=== PATIENT | female | born 1940 | race Two or more races ===

== ENCOUNTER 2019-04-17 07:11 | Inpatient (IN) | payer OTHER ==
[~2019-04-17] VITALS: Ht 160 cm; Wt 49.0 kg
[2019-04-17] MEDS ORDERED: ONDANSETRON HCL 4 MG/2 ML VIAL IV ONE ×2 (08:00→16:15)
[2019-04-17 08:47] LABS: Basophils # (auto) 0 uL; Basophils % (auto) 0.5 % (0.0-2.0); Eosinophils # (auto) 0.2 uL; Eosinophils % (auto) 2.9 % (0.0-7.0); Hematocrit 40.2 % (36.0-46.0); Hemoglobin 13.2 g/dL (12.2-16.2); Lymphocytes # (auto) 1.4 uL; Lymphocytes % (auto) 16.8 % (10.0-50.0); Mean Corpuscular Hgb Conc. 32.9 g/dL (32.0-36.0); Mean Corpuscular Volume 94.2 fL (80.0-100.0); Monocytes # (auto) 0.5 uL; Monocytes % (auto) 6.2 % (0.0-12.0); Neutrophils # (auto) 6.2 uL; Neutrophils % (auto) 73.6 % (37.0-80.0); Platelet Count (auto) 206 10^3/uL (140-450); Red Blood Cells 4.26 10^6/uL (4.0-5.20); Red Cell Distribution Width 14.6 % (11.8-14.3); White Blood Cell 8.5 10^3/uL (4.4-10.8)
[2019-04-17 08:56] LABS: Albumin 3.4 g/dL (3.4-5.0); BUN/Creatinine Ratio 16.9; Calcium 8.6 mg/dL (8.5-10.1); Potassium 4.4 mmol/L (3.5-5.1)
[2019-04-17 08:59] LABS: Bilirubin, Total 0.5 mg/dL (0.2-1.0); Total Protein 7.7 g/dL (6.4-8.2)
[2019-04-17 08:59] LABS: Urine WBC None Seen /hpf (0 - 5)
[2019-04-17 09:07] LABS: INR 1.01 (0.9-1.15); Partial Thromboplastin Time 25.1 sec (23.64-32.05)
[2019-04-17 09:16] LABS: Urine Bacteria FEW /hpf (None Seen); Urine Blood Negative /uL (Negative); Urine Specific Gravity 1.011 (1.001-1.035)
[2019-04-17] MEDS ORDERED: TEMAZEPAM 15 MG CAP PO PRN (13:30)
[2019-04-17] MEDS ORDERED: NITROGLYCERIN 0.4 MG SL TAB SL PRN (13:30)
[2019-04-17] MEDS ORDERED: traMADol HCL 50 MG TAB PO PRN (13:30)
[2019-04-17] MEDS ORDERED: hydrALAZINE HCL 20 MG/ML VL IV PRN (13:30)
[2019-04-17] MEDS ORDERED: MORPHINE SULF INJ 2 MG/ML SYRINGE 1ML IV PRN (13:30)
[2019-04-17] MEDS: hydrALAZINE HCL 20 MG/ML VL IV PRN ×3 (14:03→21:58)
[2019-04-17] MEDS: SODIUM CHLOR 0.9% PF (SALINE LOCK) 10ML VIAL/SYR IV SCH ×2 (14:08→21:06)
[2019-04-17] MEDS: ONDANSETRON HCL 4 MG/2 ML VIAL IV PRN ×2 (14:22→19:53)
[2019-04-17] MEDS ORDERED: amLODIPine BESYLATE 5 MG TAB PO ONE (14:45)
[2019-04-17] MEDS ORDERED: LISINOPRIL 20 MG TAB PO ONE (14:45)
[2019-04-17 16:41] LABS: Amylase 24 U/L (25-115); Lipase 57 U/L (73-393)
--- NOTE | 2019-04-17 17:00 | NUR ---
Telemetry admit from ER GIANCARLO CRENSHAW admitted to Telemetry unit after SBAR received. Patient oriented to JONA GOLDEN RN primary RN, unit, room, bed, and unit policies regarding patient care and visiting hours. Patient now on continuous telemetry monitoring. Patient placed on bedside oxygen 2L NC. No s/s of distress or SOB noted at this time. The patient denies having any pain at this time. Patient stated that she is nauseas and pt verbalizes that nausea medications were given in the ER and are not due at this time. Bed in lowest and locked position with side rails up x2 and call light within reach. Encouraged to call if they need something. All questions and concerns addressed, patient verbalized understanding.
[2019-04-17] MEDS: FUROSEMIDE 40 MG/4 ML VIAL IV SCH (18:46)
--- NOTE | 2019-04-17 18:51 | NUR ---
MRSA Nares Sent to Lab
[2019-04-17] MEDS ORDERED: SPIR25TA8 PO (18:57)
[2019-04-17] MEDS ORDERED: LISI40TA PO (18:57)
[2019-04-17] MEDS ORDERED: AMIO200T33 PO (18:57)
[2019-04-17] MEDS ORDERED: CARV12.544 PO (18:57)
[2019-04-17] MEDS ORDERED: ATOR40TA52 PO (18:57)
[2019-04-17] MEDS ORDERED: AML5T PO (18:57)
[2019-04-17] MEDS ORDERED: APIX5TAB PO (18:57)
--- NOTE | 2019-04-17 19:25 | NUR ---
Opening Shift Note Assumed care of patient, awake and alert x 4. No S/S of distress/SOB. Patient is reporting nausea and is retching into an emesis bag. Will provide PRN antiemetic per MD order. Bed is in lowest position and locked. Call light within reach. Board updated. Tele box number matches monitor and leads are in correct placement. Instructed on POC and to call for assist PRN, will continue to monitor for changes Q1hr and PRN.
[2019-04-17] MEDS: APIXABAN 5 MG TAB PO SCH (21:06)
[2019-04-17] MEDS: ATORVASTATIN 20 MG TAB PO SCH (21:07)
--- NOTE | 2019-04-17 22:01 | NUR ---
Yaneth hospitalist because patient's blood pressure remains elevated and she is having constant nausea and vomiting. Patient's blood pressure at 2099 was 192/73 with HR of 67. Patient was given Hydralazine 30 mg IV for sbp>170 at 2111. Reassessed BP at 2155: 168/87 with HR of 70. All other vitals are WNL. Patient has been vomiting since she was in ER this morning. She has been given zofran 4 mg IV but the patient is still retching and vomiting saliva, mucus, and some bile.
[2019-04-17 22:09] VITALS: BP 192/73
--- NOTE | 2019-04-17 22:41 | NUR ---
Spoke to PRIYANKA Mann. Order: Phenergan 12.5 mg IV IV Once. Give Phenergan then reassess BP 30 minutes after administration.
[2019-04-17] MEDS ORDERED: PROMETHAZINE HCL 25 MG/ML 1ML IV ONE (22:45)
[2019-04-18] MEDS: hydrALAZINE HCL 20 MG/ML VL IV PRN (00:22)
[2019-04-18 02:00] VITALS: BP 149/50
[2019-04-18] MEDS: FUROSEMIDE 40 MG/4 ML VIAL IV SCH ×2 (05:21→17:40)
[2019-04-18] MEDS: SODIUM CHLOR 0.9% PF (SALINE LOCK) 10ML VIAL/SYR IV SCH ×3 (05:21→22:00)
[2019-04-18 06:19] VITALS: BP 146/59
[2019-04-18 06:51] LABS: Basophils # (auto) 0 uL; Basophils % (auto) 0.1 % (0.0-2.0); Eosinophils # (auto) 0 uL; Hematocrit 40.4 % (36.0-46.0); Hemoglobin 13.6 g/dL (12.2-16.2); Lymphocytes # (auto) 0.7 uL; Lymphocytes % (auto) 6.6 % (10.0-50.0); Mean Corpuscular Hemoglobin 31.2 pg (28.0-32.0); Mean Corpuscular Hgb Conc. 33.7 g/dL (32.0-36.0); Mean Corpuscular Volume 92.5 fL (80.0-100.0); Monocytes # (auto) 0.4 uL; Monocytes % (auto) 3.6 % (0.0-12.0); Neutrophils # (auto) 9.7 uL; Neutrophils % (auto) 89.7 % (37.0-80.0); Platelet Count (auto) 265 10^3/uL (140-450); Red Blood Cells 4.37 10^6/uL (4.0-5.20); Red Cell Distribution Width 14.7 % (11.8-14.3); White Blood Cell 10.8 10^3/uL (4.4-10.8)
[2019-04-18 07:05] LABS: Potassium 3.4 mmol/L (3.5-5.1)
[2019-04-18 07:10] LABS: Albumin 3.9 g/dL (3.4-5.0); BUN/Creatinine Ratio 21.3; Calcium 9.1 mg/dL (8.5-10.1)
[2019-04-18 07:14] LABS: Bilirubin, Total 0.6 mg/dL (0.2-1.0); Total Protein 8.4 g/dL (6.4-8.2)
--- NOTE | 2019-04-18 07:15 | NUR ---
Open Shift Note Received report on patient , awake and sitting up in bed. Patient shows no signs of distress at this time. Discussed POC with transition nurse [place], patient and patient's daughter Susan. Bed in lowest lowest locked position, side rails up x2 and call light within reach. Will continue to monitor.
[2019-04-18 09:00] VITALS: BP 127/70
[2019-04-18] MEDS: APIXABAN 5 MG TAB PO SCH (10:00)
[2019-04-18] MEDS ORDERED: NITROGLYCERIN 0.2MG/HR TOPICAL PATCH TD SCH (10:00)
[2019-04-18] MEDS ORDERED: ENOXAPARIN SOD 40 MG/0.4 ML SYRINGE SC SCH (10:00)
[2019-04-18] MEDS ORDERED: POTASSIUM CHL 20 Meq TABLET PO SCH (10:00)
[2019-04-18] MEDS ORDERED: ASPirin 81 mg TAB PO SCH (10:00)
[2019-04-18] MEDS ORDERED: ENALAPRIL MALEATE 10 MG TAB PO SCH (10:00)
[2019-04-18] MEDS: SPIRONOLACTONE 25 MG TAB PO SCH (10:53)
[2019-04-18] MEDS: LISINOPRIL 20 MG TAB PO SCH (10:54)
[2019-04-18] MEDS: amLODIPine BESYLATE 5 MG TAB PO SCH (10:55)
[2019-04-18] MEDS: PANTOPRAZOLE 40 MG TAB PO SCH (10:55)
[2019-04-18 13:00] VITALS: BP 133/58
--- NOTE | 2019-04-18 15:29 | NUR ---
Paged Dr Hazel-Radiologist To Speak With Her Received call from Radiology imaging [employer] who stated they need to speak to the hospitalist in regards to imaging results. Paged Dr Hazel and got permission to give her phone number. Hospitalist's phone number given to [employer]. Radiology Imaging [phone] Hazel made aware of carotid doppler results. No new orders at this time.
--- NOTE | 2019-04-18 15:41 | NUR ---
Dr Hazel Made Dr Barriga Aware Dr Hazel called and stated she paged Dr Barriga to make him aware of Carotid doppler results as well.
[2019-04-18 17:00] VITALS: BP 148/55
--- NOTE | 2019-04-18 19:13 | NUR ---
End of Shift Endorsed care to NOC nurse. Patient shows no signs of distress at this time.
--- NOTE | 2019-04-18 19:35 | NUR ---
Opening Shift Note Assumed care of patient, awake and alert. No S/S of distress/SOB or pain. Instructed on POC and to be NPO after MN, for Stress test tomorrow. Instructed to call for assist PRN, patient verbalized understanding, call light within reach, will continue to monitor for changes Q1hr and PRN.
[2019-04-18] MEDS: ACETAMINOPHEN 500 MG TAB PO PRN (19:49)
[2019-04-18 22:00] VITALS: BP 153/69
[2019-04-18] MEDS: ATORVASTATIN 20 MG TAB PO SCH (22:00)
[2019-04-19 05:00] VITALS: BP 134/69
[2019-04-19] MEDS: FUROSEMIDE 40 MG/4 ML VIAL IV SCH (05:58)
[2019-04-19] MEDS: ONDANSETRON HCL 4 MG/2 ML VIAL IV PRN ×2 (05:58→08:34)
[2019-04-19] MEDS: SODIUM CHLOR 0.9% PF (SALINE LOCK) 10ML VIAL/SYR IV SCH ×3 (05:58→21:33)
--- NOTE | 2019-04-19 06:17 | NUR ---
IV insertion IV access obtained, via clean sterile technique by inserting 20 gauge catheter at RW after [] attempt(s). IV secured properly. No trauma to site. Patient tolerated well. NOTE: []
--- NOTE | 2019-04-19 07:00 | NUR ---
Opening Note Received report on the patient. Awake lying in bed. Patient shows no signs of distress at this time. Discussed plan of care with the patient. bed is in lowest position, side rails up x2, and call light is within reach. Will continue to monitor.
[2019-04-19 07:18] LABS: Potassium 3.3 mmol/L (3.5-5.1)
[2019-04-19 07:22] LABS: BUN/Creatinine Ratio 33.3; Calcium 8.7 mg/dL (8.5-10.1)
[2019-04-19] MEDS ORDERED: ADENOSINE 41 MG in GIVE UN-DILUTED 0 ML IV STA (08:17)
[2019-04-19 08:52] VITALS: BP 149/74
[2019-04-19 09:00] VITALS: BP 153/85
--- NOTE | 2019-04-19 09:14 | NUR ---
Stress Test Patient went down for stress test. Patient was nauseous, PRN medication was given, and tech was made aware of status.
[2019-04-19] MEDS ORDERED: POTASSIUM CHL 20 Meq TABLET PO ONE (09:30)
[2019-04-19] MEDS ORDERED: PROMETHAZINE HCL 25 MG/ML 1ML IV ONE (09:45)
[2019-04-19] MEDS: PANTOPRAZOLE 40 MG TAB PO SCH (10:28)
[2019-04-19] MEDS: SPIRONOLACTONE 25 MG TAB PO SCH (10:29)
[2019-04-19] MEDS: LISINOPRIL 20 MG TAB PO SCH (10:29)
[2019-04-19] MEDS: amLODIPine BESYLATE 5 MG TAB PO SCH (11:06)
[2019-04-19 13:00] VITALS: BP 148/83
[2019-04-19] MEDS: ACETAMINOPHEN 500 MG TAB PO PRN (13:58)
--- NOTE | 2019-04-19 14:11 | NUR ---
Doctor at Bedside doctor at bedside to discuss plan of care with patient
[2019-04-19 16:39] VITALS: BP 124/61
--- NOTE | 2019-04-19 19:15 | NUR ---
End of Shift Patient sitting up in bed, shows no signs of distress at this time. Daughter present at bedside. Bed in lowest locked position, side rails up x2 and call light within reach.
--- NOTE | 2019-04-19 19:30 | NUR ---
OPENING NOTE REPORT RECEIVED FROM DAY SHIFT RN PATIENT IS A/OX4, ABLE TO ANSWER ALL QUESTIONS APPROPRIATELY. POC DISCUSSED, PATIENT AGREEABLE TO PENDING PROCEDURES TOMORROW. PATIENT EDUCATED TO REMAIN NPO AFTER MIDNIGHT FOR PROCEDURES. FALL PRECAUTIONS IN PLACE, CALL LIGHT WITHIN REACH.
[2019-04-19] MEDS: ATORVASTATIN 20 MG TAB PO SCH (21:33)
[2019-04-19 22:00] VITALS: BP 126/53
--- NOTE | 2019-04-20 04:30 | NUR ---
EKG DONE AND PLACED IN CHART ORDERED BY MD FOR PRE OP
[2019-04-20 05:04] VITALS: BP 146/71
[2019-04-20] MEDS: SODIUM CHLOR 0.9% PF (SALINE LOCK) 10ML VIAL/SYR IV SCH ×3 (05:34→21:13)
--- NOTE | 2019-04-20 06:57 | NUR ---
CLOSING PATIENT IS RESTING AT THIS TIME. NO S/S OF DISTRESS NOTED CONSENTS FOR PROCEDURES PLACED IN HARD CHART. PATIENT HAS TWO PATENT IV'S IN PLACE. CALL LIGHT WITHIN REACH. WILL ENDORSE CARE TO AM SHIFT RN
[2019-04-20 07:37] LABS: Basophils # (auto) 0 uL; Basophils % (auto) 0.3 % (0.0-2.0); Eosinophils # (auto) 0 uL; Eosinophils % (auto) 0.2 % (0.0-7.0); Hemoglobin 14.5 g/dL (12.2-16.2); Lymphocytes # (auto) 1.9 uL; Lymphocytes % (auto) 16.4 % (10.0-50.0); Mean Corpuscular Hemoglobin 31.2 pg (28.0-32.0); Mean Corpuscular Hgb Conc. 33.7 g/dL (32.0-36.0); Mean Corpuscular Volume 92.6 fL (80.0-100.0); Monocytes # (auto) 1.2 uL; Monocytes % (auto) 10.3 % (0.0-12.0); Neutrophils # (auto) 8.6 uL; Neutrophils % (auto) 72.8 % (37.0-80.0); Nucleated Red Blood Cells % 0.1 %; Platelet Count (auto) 256 10^3/uL (140-450); Red Blood Cells 4.64 10^6/uL (4.0-5.20); Red Cell Distribution Width 14.2 % (11.8-14.3); White Blood Cell 11.8 10^3/uL (4.4-10.8)
[2019-04-20 07:54] LABS: INR 0.98 (0.9-1.15); Partial Thromboplastin Time 26.8 sec (23.64-32.05)
[2019-04-20 07:56] LABS: BUN/Creatinine Ratio 33.3; Calcium 9.3 mg/dL (8.5-10.1); Potassium 3.9 mmol/L (3.5-5.1)
[2019-04-20 08:00] VITALS: BP 148/103
[2019-04-20] MEDS: ACETAMINOPHEN 500 MG TAB PO PRN (08:46)
--- NOTE | 2019-04-20 08:50 | NUR ---
PATIENT OFF UNIT PATIENT TAKEN TO SCOOP FILLER. ALERT AND ORIENTED X4. DENIES SOB OR CHEST PAIN AT THIS TIME. PATIENT VERBALIZED HAVING A HEADACHE, TYLENOL GIVEN, SCOOP FILLER RN VERIFIED IT WAS OKAY TO GIVE. IV TO LEFT AND RIGHT WRIST 20G PATENT INTACT AND ASYMPTOMATIC.
[2019-04-20 09:09] VITALS: BP_SYST 130; BP_SYST 148; BP_DIAS 103; BP_DIAS 76
[2019-04-20] MEDS: amLODIPine BESYLATE 5 MG TAB PO SCH (10:00)
[2019-04-20] MEDS: LISINOPRIL 20 MG TAB PO SCH (10:00)
--- NOTE | 2019-04-20 11:14 | NUR ---
Nutrition Assessment Notes please see attached link for complete assessment Est. Needs BW 49k-1470kcal (25-30 kcal/kgBW), 49-58 gms pro (1.0-1.2 gms/kgBW). Will continue to monitor pertinent labs and reassess nutrient need prn Addendum: 04/20/19 at [address] Amended: Links added.
[2019-04-20] MEDS ORDERED: GLYCOPYRROLATE 0.2 MG/ML 1ML VIAL ONE (12:38)
[2019-04-20] MEDS ORDERED: ANGIOMAX 250 MG VIAL IV ONE (12:38)
[2019-04-20] MEDS ORDERED: MIDAZOLAM HCL 1MG/1ML-2 ML VIAL ONE (12:39)
[2019-04-20] MEDS ORDERED: SODIUM CHL 0.9% 50 ML ONE (12:39)
[2019-04-20] MEDS ORDERED: fentaNYL CITRATE 100 MCG/2 ML VL ONE (12:39)
[2019-04-20] MEDS ORDERED: LIDOCAINE 2%HCL (LOCAL ANESTH.) INJ 20ML MDV ONE (12:53)
[2019-04-20] MEDS ORDERED: PHENYLEPHRINE HCL 10 MG/ML VL ONE (13:03)
[2019-04-20] MEDS ORDERED: IOHEXOL 350 MG/ML 100ML IJ ONE ×2 (13:09→13:46)
[2019-04-20] MEDS ORDERED: CLOPIDOGREL 300 MG TAB ONE (13:56)
[2019-04-20] MEDS ORDERED: ASPirin 325 MG TAB ONE (13:56)
--- NOTE | 2019-04-20 14:53 | NUR ---
PATIENT BACK ON UNIT PATIENT ALERT AND ORIENTED X4 FAMILY AT BEDSIDE. AUTO BODY PAINTER RN AT BEDSIDE. RIGHT GROIN DRESSING DRY AND INTACT WITH NO HEMATOMA PRESENT. VITAL SIGNS 113/64MMHG HEART RATE 63BPM OXYGEN 98%. PULSES PALPABLE BILATERALLY. PATIENT DENIES ALL PAIN, SOB, AND ANY DISTRESS WILL CONTINUE TO MONITOR
[2019-04-20] MEDS: SPIRONOLACTONE 25 MG TAB PO SCH (16:50)
[2019-04-20] MEDS: PANTOPRAZOLE 40 MG TAB PO SCH (16:50)
[2019-04-20 16:55] LABS: BUN/Creatinine Ratio 30.5; Calcium 8.4 mg/dL (8.5-10.1)
[2019-04-20 17:00] VITALS: BP 85/47
--- NOTE | 2019-04-20 18:31 | NUR ---
PATIENT ALERT AND ORIENTED X4 FAMILY AT BEDSIDE. DRESSING TO RIGHT GROIN DRY AND INTACT WITH NO HEMATOMA PRESENT
--- NOTE | 2019-04-20 18:37 | NUR ---
REASSESSED BP 105/35 HEART RATE 54
--- NOTE | 2019-04-20 19:12 | NUR ---
SPOKE WITH AT NURSES STATION. OK TO CANCEL Q2H NEURO CHECKS AT THIS TIME WILL CONTINUE TO MONITOR PATIENT CLOSELY
--- NOTE | 2019-04-20 19:30 | NUR ---
OPENING NOTE REPORT RECEIVED FROM DAY SHIFT RN PATIENT IS S/P LEFT HEART CATH AND RIGHT CAROTID STENTING TODAY. NEURO CHECK DONE, PATIENT IS A/OX4, ABLE TO MOVE ALL EXTREMITIES EQUALLY, PERRLA, FACE IS SYMMETRICAL, TONGUE IS MIDLINE, SPEECH IS CLEAR. PATIENT BP REASSESSED AND IS 100/45. DRESSING TO RIGHT GROIN ASSESSED AND IS C/D/I WITHOUT ANY SIGNS OF HEMATOMA OR ACTIVE BLEEDING. IV NOTED TO RIGHT FOREARM AND RIGHT WRIST, BOTH PATENT. POC DISCUSSED WITH PATIENT AND HER TWO DAUGHTERS AT BEDSIDE. ALL QUESTIONS ANSWERED. FALL PRECAUTIONS ARE IN PLACE, CALL LIGHT WITHIN REACH. WILL MONITOR CLOSELY.
[2019-04-20] MEDS: ATORVASTATIN 20 MG TAB PO SCH (21:11)
[2019-04-20 22:00] VITALS: BP 106/58
[2019-04-21 05:00] VITALS: BP 110/55
[2019-04-21] MEDS: SODIUM CHLOR 0.9% PF (SALINE LOCK) 10ML VIAL/SYR IV SCH ×3 (05:26→21:26)
--- NOTE | 2019-04-21 07:02 | NUR ---
CLOSING PATIENT IS RESTING IN BED. DRESSING TO RIGHT GROIN C/D/I AT THIS TIME, NO SIGNS OF HEMATOMA OR BLEEDING. NEURO CHECK DONE. FACE SYMMETRICAL, TONGUE MIDLINE, PERRLA, EQUAL MOVEMENT OF EXTREMITIES. PATIENT DENIES ANY PAIN AT THIS TIME. FALL PRECAUTIONS IN PLACE.
[2019-04-21 09:00] VITALS: BP 112/44
--- NOTE | 2019-04-21 09:00 | NUR ---
PT REPORTS 8/10 PAIN IN HEAD. PRN PAIN MED GIVEN.
--- NOTE | 2019-04-21 09:45 | NUR ---
CAPTAIN WAITER/WAITRESS REPORTS HR 47 BPM. ASSESSED PT, PT RESTING IN BED AND REPORTS NO DISTRESS. FAMILY AT BEDSIDE. ECG DONE, ECG SHOWS SB WITH OCCASIONAL AND CONSECUTIVE PVC'S, HR 56 BPM. CALLED PBX AND PAGED DR WHITTEN TO NOTIFY HER OF PT HR. AWAITING CALL BACK.
--- NOTE | 2019-04-21 09:57 | NUR ---
DR WHITTEN CALLED BACK, NOTIFIED MD ECG DONE AND PT HR WAS 47, AND SB 56 BPM. MD AWARE, NO NEW ORDERS, ECG PLACED IN CHART.
[2019-04-21] MEDS: SPIRONOLACTONE 25 MG TAB PO SCH (10:00)
[2019-04-21] MEDS ORDERED: ASPirin 81 mg TAB PO SCH (10:00)
[2019-04-21] MEDS: amLODIPine BESYLATE 5 MG TAB PO SCH (10:00)
[2019-04-21] MEDS: ONDANSETRON HCL 4 MG/2 ML VIAL IV PRN (10:48)
[2019-04-21] MEDS: FUROSEMIDE 40 MG TAB PO SCH (10:51)
[2019-04-21] MEDS: CLOPIDOGREL BISULFATE 75 MG TAB PO SCH (10:53)
[2019-04-21] MEDS: PANTOPRAZOLE 40 MG TAB PO SCH (10:53)
[2019-04-21] MEDS: LISINOPRIL 20 MG TAB PO SCH (10:55)
--- NOTE | 2019-04-21 12:49 | NUR ---
CALLED PBX AND PAGED PHYSICAL THERAPY TO COME TO PATIENT ROOM PER MD REQUEST.
[2019-04-21] MEDS: LACTULOSE 20Gm/30ML SOLN PO PRN (12:51)
--- NOTE | 2019-04-21 12:56 | NUR ---
Pt reports LBM was the 19th, PRN lactulose given.
[2019-04-21 13:00] VITALS: BP 117/58
--- NOTE | 2019-04-21 13:45 | NUR ---
PATIENT REPORTS SHE WALKED WITH PHYSICAL THERAPY TO THE DOOR OF THE HALLWAY.
[2019-04-21 17:00] VITALS: BP 120/43
--- NOTE | 2019-04-21 19:35 | NUR ---
OPENING NOTE REPORT RECEIVED FROM DAY SHIFT RN PATIENT IS A/OX4 RESTING IN BED. DRESSING TO RIGHT GROIN ASSESSED, C/D/I, NO SIGNS OF ACTIVE BLEED OR HEMATOMA. NEURO ASSESSMENT COMPLETE, ABLE TO MOVE ALL EXTREMITIES EQUALLY, FACE SYMMETRICAL, TONGUE MIDLINE, PERRLA. PATIENT DENIES ANY PAIN OR DISCOMFORT AT THIS TIME. POC DISCUSSED AND ALL QUESTIONS ANSWERED. CALL LIGHT WITHIN REACH. FALL PRECAUTIONS IN PLACE.
[2019-04-21] MEDS: APIXABAN 5 MG TAB PO SCH (21:24)
[2019-04-21] MEDS: ATORVASTATIN 20 MG TAB PO SCH (21:24)
[2019-04-21 23:37] VITALS: BP 118/54
[2019-04-22 05:13] VITALS: BP_SYST 111; BP_SYST 126; BP_DIAS 50; BP_DIAS 66
[2019-04-22] MEDS: SODIUM CHLOR 0.9% PF (SALINE LOCK) 10ML VIAL/SYR IV SCH (06:21)
--- NOTE | 2019-04-22 06:59 | NUR ---
CLOSING PATIENT RESTING IN BED. DRESSING TO RIGHT GROIN C/D/I. NO SIGNS OF DISTRESS. CALL LIGHT WITHIN REACH.
--- NOTE | 2019-04-22 08:00 | NUR ---
PT RESTING IN BED, NO DISTRESS NOTED. PT REPORTS NO PAIN AT THIS TIME. ENCOURAGED PT TO USE CALL LIGHT PRN, WILL CONTINUE TO MONITOR.
[2019-04-22 09:00] VITALS: BP 133/48
[2019-04-22] MEDS: ACETAMINOPHEN 500 MG TAB PO PRN (10:42)
[2019-04-22] MEDS: LISINOPRIL 20 MG TAB PO SCH (10:43)
[2019-04-22] MEDS: PANTOPRAZOLE 40 MG TAB PO SCH (10:43)
[2019-04-22] MEDS: FUROSEMIDE 40 MG TAB PO SCH (10:44)
[2019-04-22] MEDS: SPIRONOLACTONE 25 MG TAB PO SCH (10:44)
[2019-04-22] MEDS ORDERED: FLEET ENEMA(ADULT) 135 ML PR ONE (10:45)
[2019-04-22] MEDS ORDERED: FURO20TA3 PO (10:45)
[2019-04-22] MEDS: APIXABAN 5 MG TAB PO SCH (10:45)
[2019-04-22] MEDS: CLOPIDOGREL BISULFATE 75 MG TAB PO SCH (10:45)
[2019-04-22] MEDS: LACTULOSE 20Gm/30ML SOLN PO PRN (10:45)
[2019-04-22] MEDS ORDERED: CLOP75TA28 PO (10:45)
[2019-04-22] MEDS: ONDANSETRON HCL 4 MG/2 ML VIAL IV PRN (10:50)
[2019-04-22] MEDS ORDERED: PANT40T PO (11:02)
--- NOTE | 2019-04-22 11:45 | NUR ---
DR WHITTEN NOTIFIED PT HAS NOT HAD A BM SINCE THE . NEW ORDERS FOR FLEET ENEMA, FLEET ENEMA GIVEN. APPROX 10 MINUTES LATER PT HAD A BM. BM WAS SMALL AMOUNT, BROWN AND FORMED.
[2019-04-22 12:43] VITALS: BP 133/48
== END 2019-04-22 13:00 | disposition home or self-care (01) | DRG 34 ==
LOC: ER 07:11 → TELE-WESTW 07:12
PROVIDERS: ADMIT Internal Medicine; ATTEND Internal Medicine
PROC: 4A023N7 Measurement of Cardiac Sampling and Pressure, Left Heart, Percutaneous Approach (ICD-10-PCS; principal; 2019-04-20)
PROC: 037K3DZ Dilation of Right Internal Carotid Artery with Intraluminal Device, Percutaneous Approach (ICD-10-PCS; 2019-04-20)
PROC: B2131ZZ Fluoroscopy of Multiple Coronary Artery Bypass Grafts using Low Osmolar Contrast (ICD-10-PCS; 2019-04-20)
PROC: B2181ZZ Fluoroscopy of Left Internal Mammary Bypass Graft using Low Osmolar Contrast (ICD-10-PCS; 2019-04-20)
PROC: B2111ZZ Fluoroscopy of Multiple Coronary Arteries using Low Osmolar Contrast (ICD-10-PCS; 2019-04-20)
PROC: B2151ZZ Fluoroscopy of Left Heart using Low Osmolar Contrast (ICD-10-PCS; 2019-04-20)
DX: I65.21 Occlusion and stenosis of right carotid artery (principal); I50.43 Acute on chronic combined systolic (congestive) and diastolic (congestive) heart failure; I16.9 Hypertensive crisis, unspecified; I42.9 Cardiomyopathy, unspecified; I16.0 Hypertensive urgency; I11.0 Hypertensive heart disease with heart failure; E78.5 Hyperlipidemia, unspecified; R00.1 Bradycardia, unspecified; I48.91 Unspecified atrial fibrillation; I25.10 Atherosclerotic heart disease of native coronary artery without angina pectoris; I70.1 Atherosclerosis of renal artery; K59.00 Constipation, unspecified; Z82.49 Family history of ischemic heart disease and other diseases of the circulatory system; Z90.710 Acquired absence of both cervix and uterus; Z95.1 Presence of aortocoronary bypass graft; I25.2 Old myocardial infarction; Z95.2 Presence of prosthetic heart valve
CPT/HCPCS: 36224; 36415; 70450; 71045; 74176; 78452; 80048; 80053; 81001; 82150; 82550; 83690; 83880; 84443; 84484; 85025; 85379; 85610; 85730; 86850; 86900; 86901; 87081; 93005; 93017; 93306; 93459; 93886; 93975; 97116; 97530; 99152; 99153; G0378; J0153; J2250; J2405

== ENCOUNTER 2021-10-08 04:49 | Inpatient (IN) | payer OTHER ==
[~2021-10-08] VITALS: Ht 160 cm; Wt 59.3 kg
[~2021-10-08 04:49] MED LIST: AMIO200T33 PO; APIX5TAB PO; ATOR40TA52 PO; CLOP75TA28 PO; FURO20TA3 PO; LISI40TA11 PO; PANT40T PO; SPIR25TA8 PO
[2021-10-08] MEDS ORDERED: NITROGLYCERIN 2% OINT 1GM PKG TD PRN (05:15)
[2021-10-08] MEDS ORDERED: MORPHINE SULFATE 4 MG/ML SYR/VIAL IV PRN (05:15)
[2021-10-08] MEDS ORDERED: ASPirin 325 MG TAB PO ONE (05:45)
[2021-10-08] MEDS ORDERED: SODIUM CHLORIDE 0.9% 1,000 ML IV ONE (06:30)
[2021-10-08 06:31] LABS: Basophils # (auto) 0.1 10 ^3/uL (0-0.2); Basophils % (auto) 0.9 % (0.0-2.0); Eosinophils # (auto) 0.1 10 ^3/uL (0-0.8); Eosinophils % (auto) 0.9 % (0.0-7.0); Hematocrit 33.7 % (36.0-46.0); Hemoglobin 11.2 g/dL (12.2-16.2); Lymphocytes # (auto) 0.8 10 ^3/uL (0.4-5.4); Lymphocytes % (auto) 11.1 % (10.0-50.0); Mean Corpuscular Hemoglobin 29.3 pg (28.0-32.0); Mean Corpuscular Hgb Conc. 33.2 g/dL (32.0-36.0); Mean Corpuscular Volume 88.3 fL (80.0-100.0); Monocytes # (auto) 0.4 10 ^3/uL (0-1.3); Monocytes % (auto) 6.2 % (0.0-12.0); Neutrophils # (auto) 5.6 10 ^3/uL (1.6-8.6); Neutrophils % (auto) 80.9 % (37.0-80.0); Nucleated Red Blood Cells % 0.1 %; Red Blood Cells 3.82 10^6/uL (4.0-5.20); Red Cell Distribution Width 16.8 % (11.8-14.3)
[2021-10-08 07:01] LABS: Albumin 2.8 g/dL (3.4-5.0); Calcium 8.6 mg/dL (8.5-10.1); Potassium 3.7 mmol/L (3.5-5.1)
[2021-10-08 07:04] LABS: BUN/Creatinine Ratio 18.5; Bilirubin, Total 1.1 mg/dL (0.2-1.0); Total Protein 6.7 g/dL (6.4-8.2)
[2021-10-08] MEDS ORDERED: IOHEXOL 350 MG/ML 100ML IJ ONE (07:13)
[2021-10-08] MEDS ORDERED: PROMETHAZINE HCL 25 MG/ML 1ML ONE (10:09)
[2021-10-08] MEDS ORDERED: PROMETHAZINE HCL 25 MG/ML 1ML IV ONE (10:15)
[2021-10-08] MEDS ORDERED: MORPHINE SULFATE INJECTION 2 MG/ML SYRG IV PRN ×2 (10:45→13:45)
[2021-10-08] MEDS ORDERED: NITROGLYCERIN 0.4 MG SL TAB SL PRN (10:45)
[2021-10-08] MEDS ORDERED: FUROSEMIDE 40 MG/4 ML VIAL IV ONE (11:30)
[2021-10-08] MEDS ORDERED: AMIODARONE HCL 150 MG in D5W 5% 100 ML IV ONE (11:30)
[2021-10-08] MEDS ORDERED: AMIODARONE 450mg/250ml AE 250 ML IV SCH ×2 (11:30→17:30)
[2021-10-08] MEDS ORDERED: DIGOXIN (250MCG/ML) 2 ML AMPULE IV ONE (11:30)
[2021-10-08] MEDS ORDERED: AMIODARONE HCL 200 MG TAB PO ONE (12:45)
[2021-10-08] MEDS ORDERED: hydrALAZINE HCL 20 MG/ML VL IV PRN (13:45)
[2021-10-08] MEDS ORDERED: DOCUSATE SOD 100 MG CAP PO PRN (13:45)
[2021-10-08] MEDS ORDERED: LORazepam 0.5 MG TAB PO PRN (13:45)
[2021-10-08] MEDS ORDERED: HYDROcodone-ACET 5/325MG TAB PO ONE (13:45)
[2021-10-08] MEDS ORDERED: LACTULOSE 20Gm/30ML SOLN PO PRN (13:45)
[2021-10-08] MEDS ORDERED: METOCLOPRAMIDE HCL 5MG/ml INJ 2ml VIAL IV PRN (13:45)
[2021-10-08] MEDS ORDERED: FAMOTIDINE (10MG/ML) 2ML VL IV ONE (13:45)
[2021-10-08] MEDS ORDERED: IPRATROPIUM BROM 0.5 MG/2.5ML INH SOL NEB ONE (13:45)
[2021-10-08] MEDS ORDERED: HYDROcodone-ACET 5/325MG TAB PO PRN (13:45)
[2021-10-08] MEDS ORDERED: IPRATROPIUM BROM 0.5 MG/2.5ML INH SOL NEB PRN (14:15)
[2021-10-08] MEDS: DOBUTamine 1000MCG/ML 250 ML IV SCH (14:19)
[2021-10-08 14:22] VITALS: BP 109/78
[2021-10-08 14:47] LABS: Phosphorus 4.6 mg/dL (2.5-4.90)
[2021-10-08 14:49] VITALS: BP 148/94
[2021-10-08 15:25] LABS: INR 1.37 (0.9-1.15); Partial Thromboplastin Time 28.5 sec (23.6-33.0)
[2021-10-08] MEDS: FUROSEMIDE 40 MG/4 ML VIAL IV SCH (17:29)
[2021-10-08 17:54] VITALS: BP 162/79
[2021-10-08 22:00] VITALS: BP 150/65
[2021-10-08] MEDS ORDERED: IPRATROPIUM BROM 0.5 MG/2.5ML INH SOL NEB SCH (22:00)
[2021-10-08] MEDS: AMIODARONE HCL 200 MG TAB PO SCH (22:35)
[2021-10-08] MEDS: CARVEDILOL 3.125 MG TAB PO SCH (22:35)
[2021-10-08] MEDS: SACUBITRIL-VALSARTAN 24mg/26mg TAB PO SCH (22:36)
[2021-10-08] MEDS: APIXABAN 5 MG TAB PO SCH (22:36)
[2021-10-09] MEDS ORDERED: cefTRIAXone 1GM/50ML D5W 50 ML IV ONE (02:30)
[2021-10-09] MEDS ORDERED: AZITHROMYCIN 500MG/ 250ML 250 ML IV ONE (02:30)
[2021-10-09 05:00] VITALS: BP 144/61
[2021-10-09] MEDS: FUROSEMIDE 40 MG/4 ML VIAL IV SCH ×2 (05:51→18:17)
[2021-10-09 06:59] LABS: Basophils # (auto) 0.1 10 ^3/uL (0-0.2); Basophils % (auto) 1.1 % (0.0-2.0); Eosinophils # (auto) 0.1 10 ^3/uL (0-0.8); Eosinophils % (auto) 1.7 % (0.0-7.0); Hematocrit 30.1 % (36.0-46.0); Hemoglobin 10.3 g/dL (12.2-16.2); Lymphocytes # (auto) 0.9 10 ^3/uL (0.4-5.4); Lymphocytes % (auto) 17.6 % (10.0-50.0); Mean Corpuscular Hgb Conc. 34.2 g/dL (32.0-36.0); Mean Corpuscular Volume 87.7 fL (80.0-100.0); Monocytes # (auto) 0.4 10 ^3/uL (0-1.3); Neutrophils # (auto) 3.5 10 ^3/uL (1.6-8.6); Neutrophils % (auto) 70.6 % (37.0-80.0); Nucleated Red Blood Cells % 0.1 %; Red Blood Cells 3.43 10^6/uL (4.0-5.20); Red Cell Distribution Width 16.9 % (11.8-14.3)
[2021-10-09 07:04] LABS: INR 1.34 (0.9-1.15); Partial Thromboplastin Time 30.5 sec (23.6-33.0)
[2021-10-09 07:06] LABS: Potassium 3.5 mmol/L (3.5-5.1)
[2021-10-09 07:27] LABS: Albumin 2.6 g/dL (3.4-5.0); BUN/Creatinine Ratio 22.6; Bilirubin, Total 0.7 mg/dL (0.2-1.0); CRP High Sensitivity 2.43 mg/dL (< 0.3); Calcium 8.4 mg/dL (8.5-10.1); Magnesium 1.7 mg/dL (1.6-2.6); Phosphorus 3.5 mg/dL (2.5-4.90); Total Protein 6.2 g/dL (6.4-8.2); Uric Acid 6.1 mg/dL (2.6-6.0)
[2021-10-09 07:35] LABS: Thyroid Stimulating Hormone 1.7 uIU/mL (0.358-3.74)
[2021-10-09 09:06] VITALS: BP 139/59
[2021-10-09] MEDS: AMIODARONE HCL 200 MG TAB PO SCH ×2 (09:30→21:20)
[2021-10-09] MEDS: CLOPIDOGREL BISULFATE 75 MG TAB PO SCH (09:30)
[2021-10-09] MEDS: APIXABAN 5 MG TAB PO SCH ×2 (09:31→21:21)
[2021-10-09] MEDS: CARVEDILOL 3.125 MG TAB PO SCH ×2 (09:31→21:21)
[2021-10-09] MEDS: SACUBITRIL-VALSARTAN 24mg/26mg TAB PO SCH ×2 (09:32→21:28)
[2021-10-09] MEDS: FAMOTIDINE (10MG/ML) 2ML VL IV SCH (09:33)
[2021-10-09] MEDS ORDERED: PANTOPRAZOLE 40 MG TAB PO SCH (10:00)
[2021-10-09] MEDS ORDERED: MAGNESIUM OXIDE 400 MG TAB PO SCH (10:00)
[2021-10-09] MEDS ORDERED: POTASSIUM CHL 20 Meq TABLET PO SCH (10:00)
[2021-10-09] MEDS ORDERED: DIGOXIN 0.125 MG TAB PO SCH (10:00)
[2021-10-09] MEDS: DOBUTamine 1000MCG/ML 250 ML IV SCH (11:30)
[2021-10-09 13:00] VITALS: BP 129/56
[2021-10-09] MEDS ORDERED: MAGNESIUM OXIDE 400 MG TAB PO ONE (17:00)
[2021-10-09] MEDS ORDERED: POTASSIUM CHL 20 Meq TABLET PO ONE (17:00)
[2021-10-09 17:19] VITALS: BP 122/51
[2021-10-09] MEDS: ATORVASTATIN 20 MG TAB PO SCH (21:22)
[2021-10-09 21:30] VITALS: BP_SYST 126; BP_SYST 151; BP_DIAS 51; BP_DIAS 91
[2021-10-09] MEDS ORDERED: SACUBITRIL-VALSARTAN 24mg/26mg TAB PO SCH (22:00)
[2021-10-10 05:00] VITALS: BP 139/68
[2021-10-10 05:48] LABS: Potassium 3.6 mmol/L (3.5-5.1)
[2021-10-10 05:57] LABS: BUN/Creatinine Ratio 26.9; Calcium 8.3 mg/dL (8.5-10.1); Magnesium 1.6 mg/dL (1.6-2.6)
[2021-10-10] MEDS: FUROSEMIDE 40 MG/4 ML VIAL IV SCH ×2 (06:11→18:54)
[2021-10-10 08:20] VITALS: BP 153/65
[2021-10-10] MEDS: SACUBITRIL-VALSARTAN 24mg/26mg TAB PO SCH ×2 (09:08→21:26)
[2021-10-10] MEDS: MAGNESIUM OXIDE 400 MG TAB PO SCH (09:09)
[2021-10-10] MEDS: AMIODARONE HCL 200 MG TAB PO SCH ×2 (09:09→21:25)
[2021-10-10] MEDS: CLOPIDOGREL BISULFATE 75 MG TAB PO SCH (09:09)
[2021-10-10] MEDS: APIXABAN 5 MG TAB PO SCH ×2 (09:09→21:26)
[2021-10-10] MEDS: DIGOXIN 0.125 MG TAB PO SCH (09:11)
[2021-10-10] MEDS: CARVEDILOL 3.125 MG TAB PO SCH ×2 (09:11→21:25)
[2021-10-10] MEDS: POTASSIUM CHL 20 Meq TABLET PO SCH (09:12)
[2021-10-10] MEDS: cefTRIAXone 1GM/50ML D5W 50 ML IV SCH (09:41)
[2021-10-10] MEDS: FAMOTIDINE (10MG/ML) 2ML VL IV SCH (09:41)
[2021-10-10] MEDS: AZITHROMYCIN 500MG/ 250ML 250 ML IV SCH (11:24)
[2021-10-10] MEDS: DOBUTamine 1000MCG/ML 250 ML IV SCH (11:30)
[2021-10-10] MEDS: DAPAGLIFLOZIN 5 MG TAB PO SCH (11:31)
[2021-10-10 12:25] VITALS: BP 123/63
[2021-10-10 16:10] VITALS: BP 153/65
[2021-10-10] MEDS: ATORVASTATIN 20 MG TAB PO SCH (21:26)
[2021-10-10 22:00] VITALS: BP 137/63
[2021-10-11] VITALS (7 sets, daily range): BP systolic 136–157; BP diastolic 57–76
[2021-10-11] MEDS: FUROSEMIDE 40 MG/4 ML VIAL IV SCH ×2 (05:57→19:19)
[2021-10-11 06:17] LABS: Potassium 3.5 mmol/L (3.5-5.1)
[2021-10-11 06:21] LABS: BUN/Creatinine Ratio 21.7; Calcium 8.6 mg/dL (8.5-10.1)
[2021-10-11] MEDS: cefTRIAXone 1GM/50ML D5W 50 ML IV SCH (08:32)
[2021-10-11] MEDS: FAMOTIDINE (10MG/ML) 2ML VL IV SCH (09:30)
[2021-10-11] MEDS: AZITHROMYCIN 500MG/ 250ML 250 ML IV SCH (09:45)
[2021-10-11 09:53] LABS: Basophils # (auto) 0 10 ^3/uL (0-0.2); Basophils % (auto) 0.8 % (0.0-2.0); Eosinophils # (auto) 0.1 10 ^3/uL (0-0.8); Eosinophils % (auto) 3.5 % (0.0-7.0); Hematocrit 31.6 % (36.0-46.0); Hemoglobin 10.2 g/dL (12.2-16.2); Lymphocytes # (auto) 0.8 10 ^3/uL (0.4-5.4); Lymphocytes % (auto) 21.9 % (10.0-50.0); Mean Corpuscular Hemoglobin 28.7 pg (28.0-32.0); Mean Corpuscular Hgb Conc. 32.1 g/dL (32.0-36.0); Mean Corpuscular Volume 89.3 fL (80.0-100.0); Monocytes # (auto) 0.5 10 ^3/uL (0-1.3); Monocytes % (auto) 13.9 % (0.0-12.0); Neutrophils # (auto) 2.2 10 ^3/uL (1.6-8.6); Neutrophils % (auto) 59.9 % (37.0-80.0); Nucleated Red Blood Cells % 0.6 %; Red Blood Cells 3.54 10^6/uL (4.0-5.20); White Blood Cell 3.7 10^3/uL (4.4-10.8)
[2021-10-11] MEDS: MAGNESIUM OXIDE 400 MG TAB PO SCH (11:00)
[2021-10-11] MEDS: POTASSIUM CHL 20 Meq TABLET PO SCH (11:01)
[2021-10-11] MEDS: DIGOXIN 0.125 MG TAB PO SCH (11:02)
[2021-10-11] MEDS: APIXABAN 5 MG TAB PO SCH ×2 (11:03→21:23)
[2021-10-11] MEDS: CLOPIDOGREL BISULFATE 75 MG TAB PO SCH (11:03)
[2021-10-11] MEDS: DAPAGLIFLOZIN 5 MG TAB PO SCH (11:03)
[2021-10-11] MEDS: SACUBITRIL-VALSARTAN 24mg/26mg TAB PO SCH ×2 (11:03→21:24)
[2021-10-11] MEDS: AMIODARONE HCL 200 MG TAB PO SCH ×2 (11:04→21:23)
[2021-10-11] MEDS: CARVEDILOL 3.125 MG TAB PO SCH ×2 (11:05→21:23)
[2021-10-11] MEDS: DOBUTamine 1000MCG/ML 250 ML IV SCH (11:06)
[2021-10-11] MEDS ORDERED: POTASSIUM EFFERVESENT TAB 25 MEQ PO ONE (14:00)
[2021-10-11] MEDS ORDERED: POTASSIUM CHL 20 Meq TABLET PO ONE (14:00)
[2021-10-11] MEDS: ATORVASTATIN 20 MG TAB PO SCH (21:24)
[2021-10-12 04:53] VITALS: BP 158/71
[2021-10-12] MEDS: FUROSEMIDE 40 MG/4 ML VIAL IV SCH (06:12)
[2021-10-12 09:00] VITALS: BP 157/71
[2021-10-12] MEDS: cefTRIAXone 1GM/50ML D5W 50 ML IV SCH (09:00)
[2021-10-12] MEDS: AZITHROMYCIN 500MG/ 250ML 250 ML IV SCH (10:52)
[2021-10-12] MEDS: FAMOTIDINE (10MG/ML) 2ML VL IV SCH (10:52)
[2021-10-12] MEDS: DAPAGLIFLOZIN 5 MG TAB PO SCH (10:58)
[2021-10-12] MEDS: DIGOXIN 0.125 MG TAB PO SCH (10:59)
[2021-10-12] MEDS: CARVEDILOL 3.125 MG TAB PO SCH (10:59)
[2021-10-12] MEDS: AMIODARONE HCL 200 MG TAB PO SCH (11:00)
[2021-10-12] MEDS: SACUBITRIL-VALSARTAN 24mg/26mg TAB PO SCH (11:01)
[2021-10-12] MEDS: POTASSIUM CHL 20 Meq TABLET PO SCH (11:01)
[2021-10-12] MEDS: APIXABAN 5 MG TAB PO SCH (11:01)
[2021-10-12] MEDS: CLOPIDOGREL BISULFATE 75 MG TAB PO SCH (11:01)
[2021-10-12] MEDS: MAGNESIUM OXIDE 400 MG TAB PO SCH (11:01)
[2021-10-12] MEDS: DOBUTamine 1000MCG/ML 250 ML IV SCH (11:30)
[2021-10-12] MEDS ORDERED: SACU1TAB PO (11:31)
[2021-10-12 12:55] VITALS: BP 150/55
[2021-10-12 13:00] VITALS: BP 150/55
== END 2021-10-12 15:15 | disposition home or self-care (01) | DRG 280 ==
LOC: ER 04:49 → TELE 10:32 → TELE-EAST 11:46
PROVIDERS: ADMIT Hospitalist; ATTEND Internal Medicine
PROC: 4B02XTZ Measurement of Cardiac Defibrillator, External Approach (ICD-10-PCS; principal; 2021-10-10)
DX: I13.0 Hypertensive heart and chronic kidney disease with heart failure and stage 1 through stage 4 chronic kidney disease, or unspecified chronic kidney disease (principal); I21.A1 Myocardial infarction type 2; J18.0 Bronchopneumonia, unspecified organism; N17.0 Acute kidney failure with tubular necrosis; J96.00 Acute respiratory failure, unspecified whether with hypoxia or hypercapnia; I50.43 Acute on chronic combined systolic (congestive) and diastolic (congestive) heart failure; I16.9 Hypertensive crisis, unspecified; D68.69 Other thrombophilia; I25.10 Atherosclerotic heart disease of native coronary artery without angina pectoris; D64.9 Anemia, unspecified; E78.5 Hyperlipidemia, unspecified; E88.09 Other disorders of plasma-protein metabolism, not elsewhere classified; I25.5 Ischemic cardiomyopathy; I48.0 Paroxysmal atrial fibrillation; N18.31 Chronic kidney disease, stage 3a; Z66 Do not resuscitate; I08.3 Combined rheumatic disorders of mitral, aortic and tricuspid valves; I27.9 Pulmonary heart disease, unspecified; I27.20 Pulmonary hypertension, unspecified; I50.82 Biventricular heart failure; Z20.822 Contact with and (suspected) exposure to COVID-19; I65.29 Occlusion and stenosis of unspecified carotid artery; Z79.01 Long term (current) use of anticoagulants; Z95.810 Presence of automatic (implantable) cardiac defibrillator; Z79.02 Long term (current) use of antithrombotics/antiplatelets; Z82.49 Family history of ischemic heart disease and other diseases of the circulatory system; Z90.710 Acquired absence of both cervix and uterus; Z95.1 Presence of aortocoronary bypass graft; Z95.2 Presence of prosthetic heart valve
CPT/HCPCS: 36415; 71045; 71275; 76604; 80048; 80053; 80061; 80162; 82550; 82728; 83036; 83615; 83690; 83735; 83880; 84100; 84443; 84484; 84550; 85025; 85379; 85610; 85652; 85730; 86141; 87040; 87081; 87086; 93005; 93306; 96361; 96374; 96375; 97163; 99291; G0378; J0696; J3490; J7060